=== PATIENT | male | born 1995 | race Caucasian/White ===

== ENCOUNTER 2021-01-23 10:53 | Emergency (ER) | payer OTHER ==
[~2021-01-23] VITALS: Ht 172.7 cm; Wt 72.6 kg
[2021-01-23 11:38] LABS: ABSOLUTE NEUTROPHILS 4.7 thou/uL (1.4-8.2); BASOPHILS 0.6 % (0.0-2.0); EOSINOPHILS 2.8 % (0.0-3.0); HEMATOCRIT 44.2 % (42.0-52.0); LYMPHOCYTES 32.9 % (24.0-44.0); MCHC 33.9 g/dL (28.0-37.0); MCV 82.7 fL (80.0-100.0); MONOCYTES 10.1 % (1.0-8.0); PLATELET COUNT 309 thou/uL (150-400); POLYS 53.6 % (36.0-66.0); RBC 5.35 mil/uL (4.50-6.00); RDW 12.8 % (10.5-14.5); WBC 8.7 thou/uL (4.0-11.0)
[2021-01-23 11:45] LABS: ANION GAP 5 mmol/L (7-16); BUN 13 mg/dL (7-18); CALCIUM 9.5 mg/dL (8.5-10.1); CHLORIDE 102 mmol/L (98-107); CO2 27 mmol/L (21-32); GLUCOSE 105 mg/dL (74-106); POTASSIUM 3.7 mmol/L (3.5-5.1); SODIUM 134 mmol/L (136-145)
[2021-01-23 11:54] LABS: TROPONIN-I <0.06 ng/mL (<0.06)
[2021-01-23 12:40] VITALS: BP 122/78
--- NOTE | 2021-01-23 15:16 | EKG ---
[place] [address] [place] [address] [facility] [place] [address] ELECTROCARDIOGRAM REPORT Name: SATURNINO EDWARD Room #: [facility] [id number] Admission: 01/23/21 Attend Phys: Discharge: 01/23/21 Date of : [birth year] Report #: [id number] [facility] ED Test Date: 2021-01-23 Test Time: 11:04:16 Pat Name: SATURNINO EDWARD Department: Room: Gender: Service Delivery Manager: : 1995 Requested By: Ricardo Shaikh Order Number: [id number] MD: Luis Hidalgo Measurements Intervals [place] Rate: 82 P: 45 SD: 156 QRS: 55 QRSD: 91 T: -1 QT: 359 QTc: 420 Interpretive Statements Sinus rhythm Baseline wander in lead(s) III No previous ECG available for comparison Electronically Signed On 01-23-2021 15:16:41 CDT by Luis Hidalgo [email or web address] <ELECTRONICALLY SIGNED> By: Luis Hidalgo MD, [facility] 01/23/21 1516 1104 1104 Luis Hidalgo MD, FACC /EPI
--- NOTE | 2021-01-23 15:17 | EKG ---
[place] [address] [email or web address] [place] [address] ELECTROCARDIOGRAM REPORT Name: SATURNINO EDWARD [facility]: [facility] [id number] Admission: 01/23/21 Attend Phys: Discharge: 01/23/21 Date of : [birth year] Report #: [id number] [facility] ED Test Date: 2021-01-23 Test Time: 11:10:46 Pat Name: SATURNINO EDWARD Department: Room: Gender: M Administrative Accountant: : 1995 Requested By: Marie Catalan Order Number: [id number] MD: Luis Hidalgo Measurements Intervals [place] Rate: 78 P: -8 UT: 120 QRS: 53 QRSD: 90 T: 4 QT: 365 QTc: 416 Interpretive Statements Sinus rhythm Compared to ECG 01/23/2021 11:04:16 Myocardial infarct finding no longer present ST (T wave) deviation no longer present Electronically Signed On 01-23-2021 15:16:45 CDT by Luis Hidalgo [email or web address] <ELECTRONICALLY SIGNED> By: Luis Hidalgo MD, [facility] 01/23/21 1516 1110 09 Luis Hidalgo MD, FACC /EPI
== END 2021-01-23 12:43 | disposition home or self-care (01) ==
LOC: ER 10:53
PROVIDERS: Nurse Practitioner
DX: R06.00 Dyspnea, unspecified (principal); R53.83 Other fatigue; R20.2 Paresthesia of skin; Z20.822 Contact with and (suspected) exposure to COVID-19